=== PATIENT | female | born 1985 | race Two or more races ===

== ENCOUNTER 2020-03-02 09:36 | Inpatient (IN) | payer OTHER ==
[~2020-03-02] VITALS: Ht 165.1 cm; Wt 124.5 kg
[2020-03-02] MEDS ORDERED: SODIUM CHLORIDE 0.9% 1,000 ML IV ONE ×2 (11:00)
[2020-03-02 11:56] LABS: Basophils # (auto) 0.1 10 ^3/uL (0-0.2); Basophils % (auto) 0.8 % (0.0-2.0); Eosinophils # (auto) 0 10 ^3/uL (0-0.8); Eosinophils % (auto) 0.6 % (0.0-7.0); Hematocrit 39.2 % (36.0-46.0); Hemoglobin 12.9 g/dL (12.2-16.2); Lymphocytes # (auto) 0.9 10 ^3/uL (0.4-5.4); Mean Corpuscular Hgb Conc. 32.8 g/dL (32.0-36.0); Mean Corpuscular Volume 82.4 fL (80.0-100.0); Monocytes # (auto) 0.3 10 ^3/uL (0-1.3); Monocytes % (auto) 4.5 % (0.0-12.0); Neutrophils # (auto) 6.1 10 ^3/uL (1.6-8.6); Neutrophils % (auto) 82.1 % (37.0-80.0); Platelet Count (auto) 222 10^3/uL (140-450); Red Blood Cells 4.76 10^6/uL (4.0-5.20); White Blood Cell 7.5 10^3/uL (4.4-10.8)
[2020-03-02] MEDS ORDERED: levETIRAcetam 500 MG TAB PO ONE (12:30)
[2020-03-02] MEDS ORDERED: CLOPIDOGREL BISULFATE 75 MG TAB PO ONE (12:30)
[2020-03-02 12:43] LABS: Albumin 2.9 g/dL (3.4-5.0); Anion Gap 6 (5-15); Blood Urea Nitrogen 10 mg/dL (7-18); Calcium 7.9 mg/dL (8.5-10.1); Carbon Dioxide 25 mmol/L (21-32); Chloride 110 mmol/L (98-107); Glucose 118 mg/dL (74-106); Potassium 3.9 mmol/L (3.5-5.1); Sodium 141 mmol/L (136-145)
[2020-03-02 12:46] LABS: Alanine Aminotransferase 21 U/L (13-56); Aspartate Aminotransferase 10 U/L (15-37); BUN/Creatinine Ratio 15.2; GFR African American 133 mL/min; GFR Non-African American 110 mL/min
[2020-03-02 12:51] LABS: Alkaline Phosphatase 63 U/L (45-117); Bilirubin, Total 0.3 mg/dL (0.2-1.0); Total Protein 6.5 g/dL (6.4-8.2)
[2020-03-02] MEDS ORDERED: GADOTERIDOL 279.3mg/mL 20ml Vial IV ONE (14:19)
[2020-03-02] MEDS ORDERED: NITROGLYCERIN 0.4 MG SL TAB SL PRN (15:00)
[2020-03-02] MEDS ORDERED: TEMAZEPAM 15 MG CAP PO PRN (15:00)
[2020-03-02] MEDS ORDERED: traMADol HCL 50 MG TAB PO PRN (15:00)
[2020-03-02] MEDS ORDERED: ACETAMINOPHEN 500 MG TAB PO PRN (15:00)
[2020-03-02] MEDS ORDERED: LORazepam 2MG/ML-1ML VIAL IV PRN (15:00)
[2020-03-02] MEDS ORDERED: MORPHINE SULF INJ 2 MG/ML SYRINGE 1ML IV PRN (15:00)
[2020-03-02] MEDS ORDERED: LACTULOSE 20Gm/30ML SOLN PO PRN (15:00)
[2020-03-02] MEDS ORDERED: PROMETHAZINE HCL 25 MG/ML 1ML IV PRN (15:00)
--- NOTE | 2020-03-02 17:15 | NUR ---
Telemetry admit from ER DAGOBERTO FLORIAN admitted to Telemetry unit after SBAR received. Patient oriented to LANA BUCIO RN primary RN, unit, room, bed, and unit policies regarding patient care and visiting hours. Patient now on continuous telemetry monitoring, tele box # [id number] and telemetry reading on arrival to unit is SR. Patient encouraged to call if they need something. All questions and concerns addressed, patient verbalized understanding.
[2020-03-02 17:23] LABS: Amphetamine Screen, Urine NEGATIVE (NEGATIVE); Barbiturate Scree,Urine NEGATIVE (NEGATIVE); Benzodiazephine Screen, Urine NEGATIVE (NEGATIVE); Cannabinoid Screen, Urine NEGATIVE (NEGATIVE); Cocaine Screen, Urine NEGATIVE (NEGATIVE); Opiate Scree,Urine NEGATIVE (NEGATIVE); Phencyclidine Screen, Urine NEGATIVE (NEGATIVE)
[2020-03-02 17:28] LABS: Urine Bacteria FEW /hpf (None Seen); Urine Blood 2+ /uL (Negative); Urine Mucus FEW (None Seen); Urine WBC 72 /hpf (0 - 5)
[2020-03-02 17:29] VITALS: BP 120/60
[2020-03-02] MEDS ORDERED: KEP500T PO (17:29)
[2020-03-02 17:38] LABS: Alcohol, Urine < 3.0 mg/dL (0-10)
[2020-03-02] MEDS: SODIUM CHLORIDE 0.9% 1,000 ML IV SCH (18:29)
--- NOTE | 2020-03-02 19:25 | NUR ---
Opening Shift Note Assumed care of patient, awake and alert. No S/S of distress/SOB or pain reported at this time. Instructed on POC and to call for assist PRN, call light within reach, will continue to monitor for changes Q1hr and PRN.
--- NOTE | 2020-03-02 19:30 | NUR ---
NEUROLOGY DR HOU AT BEDSIDE, DISCUSSING POC WITH PT, PT AXOX4, CONT CARE
[2020-03-02 20:00] VITALS: BP 134/76
--- NOTE | 2020-03-02 20:15 | NUR ---
IV removal from Left AC IV DC'd with clean sterile technique, catheter fully intact. Pressure dressing applied to site. Patient tolerated well.
--- NOTE | 2020-03-02 20:20 | NUR ---
IV insertion IV access obtained, via clean sterile technique by inserting 22 gauge catheter at left FA after 1 attempt. IV secured properly. No trauma to site. Patient tolerated well.
--- NOTE | 2020-03-02 20:33 | NUR ---
ORDERS RECEIVED FROM DR HOU FOR ROCEPHIN 1GM IV QD. RBO, CONT CARE
[2020-03-02 22:00] VITALS: BP 134/76
[2020-03-02] MEDS: levETIRAcetam 500 MG TAB PO SCH ×2 (22:00→22:15)
[2020-03-02] MEDS ORDERED: levETIRAcetam 500 MG TAB PO SCH (22:00)
[2020-03-02] MEDS: cefTRIAXone 1GM/50ML D5W 50 ML IV SCH (22:15)
[2020-03-02] MEDS: FAMOTIDINE 20 MG TAB PO SCH (22:16)
[2020-03-03] MEDS: SODIUM CHLORIDE 0.9% 1,000 ML IV SCH (04:07)
[2020-03-03 05:00] VITALS: BP 100/57
--- NOTE | 2020-03-03 07:30 | NUR ---
Opening Shift Note RECEIVED REPORT FROM NOC RN. Assumed care of patient, awake and alert. No S/S of distress/SOB or pain. BED IN LOWEST, LOCKED POSITION WITH SIDERAILS UP x2 AND CALL LIGHT WITHIN REACH. Instructed on POC and to call for assist PRN, will continue to monitor for changes Q1hr and PRN.
[2020-03-03 08:58] VITALS: BP 137/73
[2020-03-03] MEDS: cefTRIAXone 1GM/50ML D5W 50 ML IV SCH (09:24)
[2020-03-03] MEDS: levETIRAcetam 500 MG TAB PO SCH (09:40)
[2020-03-03] MEDS: FAMOTIDINE 20 MG TAB PO SCH (09:40)
[2020-03-03] MEDS ORDERED: ENOXAPARIN SOD 40 MG/0.4 ML SYRINGE SC SCH (10:00)
[2020-03-03 12:59] VITALS: BP 134/76
[2020-03-03 13:01] VITALS: BP 130/60
[2020-03-03] MEDS ORDERED: LEVE100012 PO (13:10)
[2020-03-03 13:33] VITALS: BP 137/73
--- NOTE | 2020-03-03 14:43 | NUR ---
Discharge instructions given as ordered. Encourage to follow up with PMD as instructed. All questions and concerns addressed. Patient verbalized understanding. Medication reconciliation form completed and copy given to patient. Home medications held in Pharmacy returned to patient. IV removed with catheter intact, pressure dressing applied. Telemetry unit returned to ICU. Patient AMBULATED to vehicle with all personal belongings, accompanied by staff. No distress noted at time of departure.
== END 2020-03-03 14:43 | disposition home or self-care (01) | DRG 101 ==
LOC: ER 09:36 → EDBD 09:36 → TELE 09:37 → TELE-WESTW 17:17
PROVIDERS: ADMIT Internal Medicine; ATTEND Internal Medicine
DX: G40.909 Epilepsy, unspecified, not intractable, without status epilepticus (principal); Z68.42 Body mass index [BMI] 45.0-49.9, adult; E66.01 Morbid (severe) obesity due to excess calories; R73.9 Hyperglycemia, unspecified
CPT/HCPCS: 36415; 70450; 70553; 71045; 80053; 80307; 81001; 84484; 85025; 85652; G0378; J0696